=== PATIENT | female | born 1945 ===

== ENCOUNTER 2025-02-25 13:31 | Emergency (ER) | payer OTHER ==
[~2025-02-25] VITALS: Ht 165.1 cm; Wt 90.7 kg
[2025-02-25 19:05] LABS: Source, Urine Clean Catch
[2025-02-25] MEDS ORDERED: Amoxicillin/Clavulanate K 875 MG Tab PO ONE (19:05)
[2025-02-25] MEDS ORDERED: Doxycycline Hyclate 100 MG TAB PO ONE (19:05)
[2025-02-25 19:07] LABS: Appearance, Urine Hazy (Clear); Bilirubin, Urine Neg (Neg); Blood, Urine 2+ (Neg); Color, Urine Yellow (P-Yellow); Glucose Qualitative, Urine Neg (Neg); Ketones, Urine 2+ (Neg); Leukocyte Esterase, Urine 3+ (Neg); Nitrite, Urine Neg (Neg); Protein, Urine 3+ (Neg); Urobilinogen, Urine 2+ (Normal)
[2025-02-25 19:18] LABS: BASOPHILS ABSOLUTE AUTO 0.03 K/mm3 (0.00-0.23); BASOPHILS PERCENT AUTO 0 % (0-2); EOSINOPHILS ABSOLUTE AUTO 0.36 K/mm3 (0.00-0.68); EOSINOPHILS PERCENT AUTO 4 % (0-6); Hematocrit 42.4 % (33.0-51.0); Hemoglobin 14.4 g/dL (11.5-16.0); IMMATURE GRAN ABSOLUTE AUTO 0.02 K/mm3 (0.00-0.10); IMMATURE GRAN PERCENT AUTO 0 % (0-1); LYMPHOCYTES ABSOLUTE AUTO 2.64 K/mm3 (0.84-5.20); LYMPHOCYTES PERCENT AUTO 31 % (21-46); MONOCYTES ABSOLUTE AUTO 0.56 K/mm3 (0.16-1.47); MONOCYTES PERCENT AUTO 7 % (4-13); Mean Corpuscular HGB 28.5 pg (26.0-34.0); Mean Corpuscular Volume 84 fL (80-100); NEUTROPHILS ABSOLUTE AUTO 4.96 K/mm3 (1.96-9.15); NEUTROPHILS PERCENT AUTO 58 % (41-73); Platelet Count 153 K/mm3 (150-400); RDW Coefficient Variation 12.7 % (11.7-14.2); RDW Standard Deviation 38.5 fL (35.1-46.3); Red Blood Cell Count 5.05 M/mm3 (3.80-5.20); White Blood Cell Count 8.57 K/mm3 (4.00-11.30)
[2025-02-25 19:34] LABS: Free Thyroxine 1.2 ng/dL (0.70-1.60)
[2025-02-25 19:40] LABS: Albumin, Blood 4.1 g/dL (3.4-5.0); Albumin/Globulin Ratio 1.6 (0.8-1.8); Bilirubin, Total 1.9 mg/dL (0.1-1.0); Bun/Creatinine Ratio 11.7 (12.0-20.0); Calcium, Blood 10.4 mg/dL (8.5-10.1); Creatinine, Blood 1.2 mg/dL (0.40-1.00); Globulin, Blood 2.5 g/dL (2.2-4.0); Potassium, Blood 2.7 mmol/L (3.5-5.5); Thyroid Stimulating Hormone 1.68 uIU/mL (0.360-4.800); Total Protein, Blood 6.6 g/dL (6.4-8.2)
[2025-02-25 19:43] LABS: Bacteria Many /hpf; Mucus Light (0-Heavy); Red Blood Cells, Urine 0-2 /hpf (0-2); Squamous Epithelial Cells Few /hpf (Few); Transitional Epithelial Cells Rare /hpf (0-Rare)
[2025-02-25] MEDS ORDERED: Potassium Chloride 20 MEQ TabCR PO ONE (20:00)
[2025-02-25] MEDS ORDERED: Magnesium Oxide 400 MG Tab PO ONE (20:00)
[2025-02-25] MEDS ORDERED: DOXY100 PO (20:35)
[2025-02-25] MEDS ORDERED: AMOCLA875 PO (20:35)
[2025-02-25] MEDS ORDERED: POTA10T PO (20:39)
== END 2025-02-25 21:13 | disposition home or self-care (01) ==
LOC: ER 13:31
PROVIDERS: Emergency Medicine
DX: E87.6 Hypokalemia (principal); J98.4 Other disorders of lung; I10 Essential (primary) hypertension
CPT/HCPCS: 70450; 71045; 80053; 81001; 84439; 84443; 85025; 93005; 93010; 99285-25; A9270

== ENCOUNTER 2025-03-03 12:15 | Inpatient (IN) | payer OTHER ==
[~2025-03-03] VITALS: Ht 165.1 cm; Wt 75.7 kg
[~2025-03-03 12:15] MED LIST: AMOCLA875 PO; DOXY100 PO; POTA10T PO
[2025-03-03 14:33] LABS: BASOPHILS ABSOLUTE AUTO 0.04 K/mm3 (0.00-0.23); BASOPHILS PERCENT AUTO 1 % (0-2); EOSINOPHILS ABSOLUTE AUTO 0.18 K/mm3 (0.00-0.68); EOSINOPHILS PERCENT AUTO 2 % (0-6); Hematocrit 43.9 % (33.0-51.0); Hemoglobin 15.3 g/dL (11.5-16.0); IMMATURE GRAN ABSOLUTE AUTO 0.01 K/mm3 (0.00-0.10); IMMATURE GRAN PERCENT AUTO 0 % (0-1); LYMPHOCYTES ABSOLUTE AUTO 2.46 K/mm3 (0.84-5.20); LYMPHOCYTES PERCENT AUTO 29 % (21-46); MONOCYTES ABSOLUTE AUTO 0.57 K/mm3 (0.16-1.47); MONOCYTES PERCENT AUTO 7 % (4-13); Mean Corpuscular HGB 29.4 pg (26.0-34.0); Mean Corpuscular HGB Conc 34.9 g/dL (31.5-36.5); Mean Corpuscular Volume 84 fL (80-100); Mean Platelet Volume 11.3 fL (9.1-12.4); NEUTROPHILS ABSOLUTE AUTO 5.24 K/mm3 (1.96-9.15); NEUTROPHILS PERCENT AUTO 62 % (41-73); Platelet Count 171 K/mm3 (150-400); RDW Coefficient Variation 12.8 % (11.7-14.2); RDW Standard Deviation 39.1 fL (35.1-46.3); Red Blood Cell Count 5.21 M/mm3 (3.80-5.20)
[2025-03-03 15:06] LABS: Acetaminophen, Random <2.0 ug/mL (10.0-30.0); Alanine Aminotransfer (ALT/SGP 17 U/L (12-78); Albumin/Globulin Ratio 1.5 (0.8-1.8); Alk Phos 101 U/L (50-136); Anion Gap 9 mmol/L (3-11); Aspartate Aminotrans (AST/SGOT 17 U/L (12-37); Bilirubin, Total 1.5 mg/dL (0.1-1.0); Blood Urea Nitrogen 15 mg/dL (8-24); Bun/Creatinine Ratio 12.6 (12.0-20.0); CO2, Blood 27 mmol/L (21-32); Calcium, Blood 9.8 mg/dL (8.5-10.1); Chloride, Blood 105 mmol/L (98-108); Creatinine, Blood 1.19 mg/dL (0.40-1.00); Ethanol (Alcohol), Blood, Med <3 mg/dL; Globulin, Blood 2.6 g/dL (2.2-4.0); Glomerular Filtration Rate 47 (60-); Glucose, Blood 93 mg/dL (70-99); Potassium, Blood 3.3 mmol/L (3.5-5.5); Salicylate <1.7 mg/dL (2.8-20.0); Sodium, Blood 138 mmol/L (136-145); Total Protein, Blood 6.6 g/dL (6.4-8.2)
[2025-03-03] MEDS ORDERED: DABI150C PO (16:37)
[2025-03-03] MEDS ORDERED: Prozac40 MG PO (16:38)
[2025-03-03] MEDS ORDERED: RISP.5 PO (16:39)
[2025-03-03 18:35] LABS: Source, Urine Voided
[2025-03-03 18:41] LABS: Appearance, Urine Clear (Clear); Bilirubin, Urine Neg (Neg); Blood, Urine 1+ (Neg); Color, Urine Yellow (P-Yellow); Glucose Qualitative, Urine Neg (Neg); Ketones, Urine 1+ (Neg); Leukocyte Esterase, Urine Neg (Neg); Nitrite, Urine Neg (Neg); Protein, Urine 2+ (Neg); Specific Gravity, Urine 1.015 (1.003-1.022); Urobilinogen, Urine NORM (Normal)
[2025-03-03 18:48] LABS: Bacteria Rare /hpf; Squamous Epithelial Cells Rare /hpf (Few); White Blood Cells, Urine 0-2 /hpf (0-5)
[2025-03-03] MEDS ORDERED: Ondansetron HCl 2 MG / ML 2ML Vial IV PRN (19:20)
[2025-03-03 19:28] LABS: U Amphetamine Screen Not Detected; U Barbituate Screen Not Detected; U Benzodiazapine Screen Not Detected; U Buprenorphine Screen Not Detected; U Cannabinoids Screen Not Detected; U Cocaine Screen Not Detected; U Methadone Screen Not Detected; U Methamphetamine Screen Not Detected; U Opiates Screen Not Detected; U Oxycodone Screen Not Detected; U Phencyclidine Screen Not Detected
[2025-03-03] MEDS ORDERED: Enoxaparin 40 MG/0.4 ML SYR SC SCH (20:00)
[2025-03-03] MEDS ORDERED: Potassium Chloride 20 MEQ TabCR PO ONE (20:00)
[2025-03-03 21:07] LABS: Phosphorus, Blood 2.1 mg/dL (2.5-4.9)
[2025-03-03] MEDS ORDERED: HydrALAZINE HCl 20 MG / ML 1ML Vial IV PRN ×2 (21:45→23:20)
[2025-03-03] MEDS ORDERED: Labetalol HCL 5 MG/ML 4ML Injection (Single Dose) IV PRN (23:23)
[2025-03-03] MEDS ORDERED: Labetalol HCL 5 MG/ML 4ML Injection (Single Dose) IV ONE (23:25)
[2025-03-04] VITALS (10 sets, daily range): BP systolic 141–173; BP diastolic 95–117
[2025-03-04] MEDS ORDERED: Sodium Phosphate 20 MM in Dextrose 5% 500 ML IV STA (01:01)
[2025-03-04] MEDS ORDERED: TRAZ50 PO (02:45)
[2025-03-04] MEDS ORDERED: LISI20 PO (02:45)
[2025-03-04 06:14] LABS: BASOPHILS ABSOLUTE AUTO 0.05 K/mm3 (0.00-0.23); BASOPHILS PERCENT AUTO 1 % (0-2); EOSINOPHILS ABSOLUTE AUTO 0.17 K/mm3 (0.00-0.68); EOSINOPHILS PERCENT AUTO 2 % (0-6); Hematocrit 43.5 % (33.0-51.0); Hemoglobin 15.1 g/dL (11.5-16.0); IMMATURE GRAN ABSOLUTE AUTO 0.04 K/mm3 (0.00-0.10); IMMATURE GRAN PERCENT AUTO 0 % (0-1); LYMPHOCYTES ABSOLUTE AUTO 2.71 K/mm3 (0.84-5.20); LYMPHOCYTES PERCENT AUTO 27 % (21-46); MONOCYTES ABSOLUTE AUTO 0.78 K/mm3 (0.16-1.47); MONOCYTES PERCENT AUTO 8 % (4-13); Mean Corpuscular HGB 29.3 pg (26.0-34.0); Mean Corpuscular HGB Conc 34.7 g/dL (31.5-36.5); Mean Corpuscular Volume 85 fL (80-100); Mean Platelet Volume 11.6 fL (9.1-12.4); NEUTROPHILS ABSOLUTE AUTO 6.36 K/mm3 (1.96-9.15); NEUTROPHILS PERCENT AUTO 63 % (41-73); Platelet Count 169 K/mm3 (150-400); RDW Coefficient Variation 12.8 % (11.7-14.2); RDW Standard Deviation 38.7 fL (35.1-46.3); Red Blood Cell Count 5.15 M/mm3 (3.80-5.20); White Blood Cell Count 10.11 K/mm3 (4.00-11.30)
[2025-03-04 06:31] LABS: Albumin, Blood 3.7 g/dL (3.4-5.0); Albumin/Globulin Ratio 1.5 (0.8-1.8); Bilirubin, Total 1.4 mg/dL (0.1-1.0); Bun/Creatinine Ratio 13.5 (12.0-20.0); Calcium, Blood 9.5 mg/dL (8.5-10.1); Creatinine, Blood 1.04 mg/dL (0.40-1.00); Globulin, Blood 2.4 g/dL (2.2-4.0); Potassium, Blood 2.7 mmol/L (3.5-5.5); Total Protein, Blood 6.1 g/dL (6.4-8.2)
[2025-03-04] MEDS ORDERED: Potassium Chloride 20 MEQ TabCR PO ONE (10:00)
--- NOTE | 2025-03-04 12:44 | NUR ---
PSYCH CALLED CALLED DR. DELGADO TO NOTIFY PATIENT NOT ON ANY HOME MEDICATIONS AND NO PSYCH MEDS AT THIS TIME. DR. DELGADO STATED TO CALL [facility] AND REQUEST RECOMMENDATION. DR. BARBOSA CALLED AND STATED WOULD COME REASSESS PATIENT AND START MEDICATIONS. PATIENT ANXIOUS IN HER ROOM CURRENTLY, BEDSIDE SITTER STATED PATIENT WITH AUDITORY HALLUCINATIONS. PATIENT STATED SHE WAS UPSET AND WHEN QUESTIONED STATED "SOMEONE CAME BY AND GAVE ME A LETTER SAYING I MOLESTED A CHILD" PATIENT WAS TEARFUL, THIS RN AND BEDSIDE SITTER CONSOLED PATIENT AND INFORMED HER THIS WAS NOT REAL. INFORMED PATIENT THAT SHE IS SAFE AND COMFORTED HER. PATIENT AGREEABLE TO SEE DR. BARBOSA AND STATES "WILL TAKE MEDICATIONS" TO MAKE HER "MIND RIGHT". PATIENT REMAINS COOPERATIVE WITH CARE. WILL CONTINUE TO MONITOR.
[2025-03-04] MEDS ORDERED: DULoxetine HCL 20 MG Cap DR PO SCH (13:15)
[2025-03-04] MEDS ORDERED: METO50 PO (14:28)
[2025-03-04 15:18] LABS: CORONAVIRUS COVID-19 AG Negative (NEGATIVE)
--- NOTE | 2025-03-04 18:24 | NUR ---
DISCHARGE NOTE PATIENT DISCHARGED TO [facility] IN [facility]. REPORT CALLED TO ALAINA AT [facility]. PATIENT REMAINS DISORIENTED, A/OX2, PLEASANT AND COOPERATIVE BUT ANXIOUS, FEARFUL, AND TEARFUL WITH AUDITORY HALLUCINATIONS AND PARANOID DELUSIONS. 1:1 SITTER AT BEDSIDE ENTIRE SHIFT. PATIENT EVALUATED BY PSYCH THIS AFTERNOON AND HOME MEDICATIONS RESTARTED. PATIENT'S CAREGIVER UPDATED ON PATIENT STATUS THIS AM. IV AND TELEMETRY REMOVED PRIOR TO DISCHARGE. PATIENT ASSISTED TO [facility] WITH TRANSPORATION STAFF. NO OTHER CONCERNS AT TIME OF DISCHARGE, ALL BELONINGS SENT WITH PATIENT INCLUDING GONZÁLEZ.
[2025-03-04] MEDS ORDERED: RisperiDONE 1 MG Tab PO SCH (21:00)
[2025-03-04] MEDS ORDERED: Metoprolol Tartrate 50 MG Tab PO SCH (21:00)
[2025-03-04] MEDS ORDERED: Dabigatran Etexilate Mesylate 150 MG CAPSULE PO SCH (21:00)
[2025-03-04] MEDS ORDERED: TraZODone HCl 50 MG Tab PO SCH (21:00)
[2025-03-05] MEDS ORDERED: Potassium Chloride 10 Meq Tablet SA PO SCH (09:00)
[2025-03-05] MEDS ORDERED: FLUoxetine HCL 20 MG CAP PO SCH (09:00)
[2025-03-05] MEDS ORDERED: Lisinopril 20 MG Tab PO SCH (09:00)
== END 2025-03-04 17:39 | DRG 885 ==
LOC: ER 12:15 → MEDS 12:16 → EOR 12:16 → MEDS 12:16 → EOR 12:16 → MEDS 03-04 01:48
PROVIDERS: Emergency Medicine; Family Medicine; Internal Medicine; ADMIT Student in an Organized Health Care Education/Training Program
DX: F20.0 Paranoid schizophrenia (principal); F32.A Depression, unspecified; E87.6 Hypokalemia; I12.9 Hypertensive chronic kidney disease with stage 1 through stage 4 chronic kidney disease, or unspecified chronic kidney disease; N18.2 Chronic kidney disease, stage 2 (mild); Z79.899 Other long term (current) drug therapy; Z88.1 Allergy status to other antibiotic agents
CPT/HCPCS: 36415; 80053; 80320; 81001; 81025; 83735; 83880; 84100; 85025; 87426-QW; 93005; 93010; 96372; 96374; 96375; 99285-25; A9270; G0378; G0480; J0360; J1650; J7060

== ENCOUNTER → 2025-06-27 | Outpatient (CLI) | payer OTHER ==
[~2025-06-27] MED LIST changes: +DABI150C PO; +LISI20 PO; +METO50 PO; +Prozac40 MG PO; +RISP.5 PO; +TRAZ50 PO
[2025-06-28 17:11] LABS: Source, Urine Clean Catch
[2025-06-28 17:25] LABS: Bilirubin, Urine Neg (Neg); Color, Urine Yellow (P-Yellow); Glucose Qualitative, Urine Neg (Neg); Ketones, Urine Neg (Neg); Leukocyte Esterase, Urine 2+ (Neg); Protein, Urine 2+ (Neg); Specific Gravity, Urine 1.020 (1.003-1.022); Urobilinogen, Urine 1+ (Normal)
[2025-06-28 17:37] LABS: Yeast/Fungi Urine Rare /hpf
== END ==
LOC: LAB 19:00 → LAB SHORT 19:00
PROVIDERS: Family Medicine
DX: N39.0 Urinary tract infection, site not specified (principal)
CPT/HCPCS: 81001; 87086